=== PATIENT | male | born 1990 | race Caucasian/White ===

== ENCOUNTER 2020-04-25 07:37 | Emergency (ER) | payer BC ==
[2020-04-25] MEDS ORDERED: Ondansetron 4 MG/2 ML SDV IVPUSH ONE (08:19)
[2020-04-25] MEDS ORDERED: Sodium Chloride 0.9% 10 ML Syringe FLUSH PRN (08:19)
[2020-04-25] MEDS ORDERED: Sodium Chloride 0.9% 1,000 ML IV SCH (08:30)
--- NOTE | 2020-04-25 08:59 | EDM.PDOC ---
ED HPI GENERAL MEDICAL PROBLEM - General Chief Complaint: General Stated Complaint: DIZZINESS Time Seen by Provider: 04/25/20 07:57 Source of Information: Reports: Patient, RN Notes Reviewed - History of Present Illness INITIAL COMMENTS - FREE TEXT/NARRATIVE: Has been "dizzy" all morning. 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 He has vertigo worse with motion but also did get nauseated, very lightheaded about an hr ago. He does feel somewhat better now but still has vertigo with motion. Has not been previously ill. No cough, fever or sore throat. No abd pain at this time. - Related Data Allergies Allergy/AdvReac Type Severity Reaction Status Date / Time No Known Allergies Allergy Verified 04/25/20 07:50 Home Meds: Home Meds Meclizine [Antivert] 12.5 mg PO BID #14 tab 04/25/20 [Rx] Past Medical History HEENT History: Reports: None Cardiovascular History: Reports: Other (See Below) Other Cardiovascular History: hx of SVT with ablation 10 years ago Respiratory History: Reports: None Gastrointestinal History: Reports: None Genitourinary History: Reports: None Musculoskeletal History: Reports: None Neurological History: Reports: Migraines Other Neuro History: last migriane 3 months ago. Normally uses Excedin in begining otherwise dark and sleep Psychiatric History: Reports: None Endocrine/Metabolic History: Reports: None Hematologic History: Reports: None Immunologic History: Reports: None Oncologic (Cancer) History: Reports: None Dermatologic History: Reports: None - Infectious Disease History Infectious Disease History: Reports: None - Past Surgical History Head Surgeries/Procedures: Reports: None HEENT Surgical History: Reports: Adenoidectomy, Tonsillectomy Cardiovascular Surgical History: Reports: Cardiac Ablation Social & Family History - Family History HEENT: Reports: None Cardiac: Reports: None Respiratory: Reports: None GI: Reports: None : Reports: None OBGYN: Reports: None Musculoskeletal: Reports: None Neurological: Reports: None Psychiatric: Reports: None Endocrine/Metabolic: Reports: None Hematologic: Reports: None Immunologic: Reports: None Dermatologic: Reports: None Oncologic: Reports: None - Tobacco Use Smoking Status *Q: Former Smoker Used Tobacco, but Quit: Yes Month/Year Tobacco Last Used: 08/2013 - Caffeine Use Caffeine Use: Reports: Coffee, Energy Drinks, Soda, Tea - Recreational Drug Use Recreational Drug Use: No ED ROS GENERAL - Review of Systems Review Of Systems: See Below Constitutional: Denies: Fever, Chills HEENT: Denies: Ear Discharge, Ear Pain, Rhinitis, Sinus Problem Respiratory: Denies: Shortness of Breath, Cough Cardiovascular: Denies: Chest Pain GI/Abdominal: Reports: Nausea. Denies: Diarrhea, Vomiting Musculoskeletal: Reports: No Symptoms Skin: Reports: No Symptoms Neurological: Reports: Dizziness. Denies: Headache, Trouble Speaking, Weakness ED EXAM, GENERAL - Physical Exam Exam: See Below General Appearance: Alert, Mild Distress Head: Atraumatic Neck: Supple Respiratory/Chest: No Respiratory Distress, Lungs Clear Cardiovascular: Regular Rate, Rhythm GI/Abdominal: Soft, Non-Tender Extremities: Normal Inspection, Normal Range of Motion Neurological: Alert, Oriented, No Motor/Sensory Deficits Skin Exam: Warm, Dry, Normal Color Course - Vital Signs Last Recorded V/S: Last Vital Signs Temp 97.1 F 04/25/20 07:50 Pulse 87 04/25/20 07:50 Resp 13 04/25/20 07:50 BP 138/85 04/25/20 07:50 Pulse Ox 100 04/25/20 07:50 Orthostatic Blood Pressure [ 126/83 Standing] Orthostatic Blood Pressure [ 130/88 Sitting] Orthostatic Blood Pressure [ 131/78 Supine] - Orders/Labs/Meds Orders: Active Orders 24 hr Category Date Time Status Peripheral IV Insertion Adult [OM.PC] Stat Oth 04/25/20 08:19 Ordered Labs: Laboratory Tests 04/25/20 04/25/20 Range/Units 08:40 08:40 WBC 5.34 (4.23-9.07) K/mm3 RBC 5.02 (4.63-6.08) M/mm3 Hgb 15.4 (13.7-17.5) gm/dl Hct 45.8 (40.1-51.0) % MCV 91.2 (79.0-92.2) fl MCH 30.7 (25.7-32.2) pg MCHC 33.6 (32.2-35.5) g/dl RDW Std Deviation 44.1 H (35.1-43.9) fL Plt Count 242 (163-337) K/mm3 MPV 9.7 (9.4-12.3) fl Neut % (Auto) 71.9 H (34.0-67.9) % Lymph % (Auto) 17.2 L (21.8-53.1) % [place] % (Auto) 9.9 (5.3-12.2) % Eos % (Auto) 0.4 L (0.8-7.0) Baso % (Auto) 0.4 (0.1-1.2) % Neut # (Auto) 3.84 (1.78-5.38) K/mm3 Lymph # (Auto) 0.92 L (1.32-3.57) K/mm3 [place] # (Auto) 0.53 (0.30-0.82) K/mm3 Eos # (Auto) 0.02 L (0.04-0.54) K/mm3 Baso # (Auto) 0.02 (0.01-0.08) K/mm3 Sodium 143 (136-145) mEq/L Potassium 4.2 (3.5-5.1) mEq/L Chloride 105 (98-107) mEq/L Carbon Dioxide 30 (21-32) mEq/L Anion Gap 12.2 (5-15) BUN 12 (7-18) mg/dL Creatinine 1.0 (0.7-1.3) mg/dL Est Cr Clr Drug Dosing 117.48 mL/min Estimated GFR (MDRD) > 60 (>60) mL/min BUN/Creatinine Ratio 12.0 L (14-18) Glucose 107 H (74-106) mg/dL Calcium 9.2 (8.5-10.1) mg/dL Total Bilirubin 0.3 (0.2-1.0) mg/dL AST 22 (15-37) U/L ALT 43 (16-63) U/L Alkaline Phosphatase 94 (46-116) U/L Total Protein 7.3 (6.4-8.2) g/dl Albumin 4.1 (3.4-5.0) g/dl Globulin 3.2 gm/dL Albumin/Globulin Ratio 1.3 (1-2) Meds: Medications Discontinued Medications Generic Name Dose Route Start Last Admin Trade Name Freq PRN Reason Stop Dose Admin Sodium Chloride 1,000 mls @ 999 mls/hr 04/25/20 08:30 04/25/20 08:42 Normal Saline IV 999 mls/hr ONETIME MATTHEW Administration Meclizine HCl 12.5 mg 04/25/20 09:42 04/25/20 09:47 Antivert PO 04/25/20 09:43 12.5 mg ONETIME ONE Administration Ondansetron HCl 4 mg 04/25/20 08:19 04/25/20 08:44 Zofran IVPUSH 04/25/20 08:20 4 mg ONETIME ONE Administration Sodium Chloride 10 ml 04/25/20 08:19 04/25/20 08:44 Saline Flush FLUSH 10 ml ASDIRECTED PRN Administration Keep Vein Open - Re-Assessments/Exams Free Text/Narrative Re-Assessment/Exam: 04/26/20 08:07 Labs good, IV meds and fluid given, feeling better at time of discharge. Departure - Departure Time of Disposition: 09:47 Disposition: Home, Self-Care 01 Condition: Fair Clinical Impression: Vertigo, Near syncope - Discharge Information Prescriptions: Meclizine [Antivert] 12.5 mg PO BID #14 tab Instructions: Near-Syncope, [id number], Dizziness, [id number] Referrals: PCP,None [Primary Care Provider] - Forms: ED Department Discharge, ED Return to Work/School Form Additional Instructions: Rest, move slowly and carefully. Antivert 12.5 mg twice daily for 3 days, thereafter if needed. Move slowly and carefully as discussed. Return to ED as needed if symptoms worsening in any way. Sepsis Event Note (ED) - Evaluation Sepsis Screening Result: No Definite Risk - My Orders Last 24 Hours: My Active Orders 04/25/20 08:19 Peripheral IV Insertion Adult [OM.PC] Stat - Assessment/Plan Last 24 Hours: My Active Orders 04/25/20 08:19 Peripheral IV Insertion Adult [OM.PC] Stat
[2020-04-25] MEDS ORDERED: Meclizine 12.5 MG Tab PO ONE (09:42)
== END 2020-04-25 10:09 | disposition home or self-care (01) ==
LOC: JD.ED 07:37
DX: R42 Dizziness and giddiness (principal); R55 Syncope and collapse; Z87.891 Personal history of nicotine dependence
CPT/HCPCS: 36415; 80053; 85025; 96361; 96374; 99284; A9270; J2405; J7030; 99283